=== PATIENT | female | born 1925 ===

== ENCOUNTER 2016-04-21 10:34 | Inpatient (IN) | payer OTHER ==
[2016-04-21 11:04] LABS: BASOPHILS % 0.7 (0.0-1.5); EOSINOPHILS % 3.8 % (0.0-6.8); LYMPHOCYTES # 0.9 # k/uL (0.6-4.0); MONOCYTES # 0.5 # k/uL (0.0-0.9); MONOCYTES % 7.2 % (0.0-11.0); NEUTROPHILS # 5.5 # k/uL (1.4-7.7)
--- NOTE | 2016-04-21 11:09 | ED Physician Documentation ---
General Adult - HISTORIAN Historian: patient, other (nursing staff) - HPI Stated Complaint: Shortness of Breath Chief Complaint: General Adult Onset: days ago (3) Timing: still present Severity: moderate Context: no precipitating factors Further Comments: yes - ROS CONST: recent illness (? viral). denies: fever CVS/RESP: shortness of breath. denies: chest pain, cough GI/: denies: abdominal pain, problems urinating, vomiting, nausea, diarrhea MS/SKIN/LYMPH: joint pain (at [place]). denies: calf pain - PAST HX Past History: none, other (CAD, dementia,HTN) Other History: diabetes Type 2, other (GERDs, OA) Allergies/Adverse Reactions: Allergies Allergy/AdvReac Type Severity Reaction Status Date / Time No Known Allergies Allergy Verified 04/21/16 10:59 Home Medications: Ambulatory Orders Medication Instructions Recorded Acetaminophen [Tylenol] 650 mg PO Q4 PRN 04/21/16 Ferrous Sulfate [Feosol] 325 mg PO BID 04/21/16 Magnesium Hydroxide [Milk of 2,400 mg PO BID PRN 04/21/16 Magnesia] - SOCIAL HX Smoking History: non-smoker Alcohol Use: none Drug Use: none - FAMILY HX Family History: Yes (diabetes) - VITAL SIGNS Vital Signs: Vital Signs Temp Pulse Resp BP Pulse Ox 98 F 78 18 105/50 84 L 04/21/16 10:35 04/21/16 10:35 04/21/16 10:35 04/21/16 10:35 04/21/16 10:35 - REVIEWED ASSESSMENTS Nursing Assessment Reviewed: Yes ED Results Lab/Radiology - Lab Results Lab Results: Lab Results 04/21/16 04/21/16 10:58 10:55 WBC 7.40 K/ul K/ul (4.00-12.00) RBC 3.05 M/ul L M/ul (3.90-5.20) Hgb 10.4 g/dL L g/dL (12.0-16.0) Hct 30.8 % L % (34.5-46.5) MCV 100.8 fl H fl (80.0-100.0) MCH 34.0 pg pg (28.0-34.0) MCHC 33.7 g/dL g/dL (30.0-36.0) RDW 12.6 % % (11.3-14.3) Plt Count 164 K/mm3 K/mm3 (130-400) Neut % (Auto) 74.2 % % (39.0-79.0) Lymph % (Auto) 12.4 % L % (16.0-50.0) [place] % (Auto) 7.2 % % (0.0-11.0) Eos % (Auto) 3.8 % % (0.0-6.8) Baso % (Auto) 0.7 (0.0-1.5) Neut # 5.5 # k/uL # k/uL (1.4-7.7) Lymph # 0.9 # k/uL # k/uL (0.6-4.0) [place] # 0.5 # k/uL # k/uL (0.0-0.9) Eos # 0.3 # k/uL # k/uL (0.0-0.6) Baso # 0.0 # k/uL # k/uL (0.0-0.5) Reactive Lymphs % 1.6 % % (0.0-5.0) Reactive Lymphs # 0.1 # k/uL # k/uL (0.0-0.8) Influenza Type A Ag Negative (NEGATIVE) Influenza Type B Ag Negative (NEGATIVE) - Orders Orders: ED Orders Category Date Time Status Place Saline Lock/IV Now Care 04/21/16 11:03 Active CHEST P.A.&LAT 2 VIEWS [RAD] Routine Exams 04/21/16 Ordered BNP [NT-proBNP] Routine Lab 04/21/16 Ordered CBC/PLATELET/DIFF Routine Lab 04/21/16 10:55 Completed CMP Routine Lab 04/21/16 10:55 Received INFLUENZA A&B Routine Lab 04/21/16 10:58 Completed 0.9 % Sodium Chloride [Normal Saline] 1,000 ml Med 04/21/16 11:30 Ordered IV .Q1H Oxygen Daily Oxygen 04/21/16 11:15 Ordered EKG WITH COMPARISON Routine Ther 04/21/16 Ordered General Adult Physical Exam - PHYSICAL EXAM GENERAL APPEARANCE: mild distress EENT: eye inspection normal, ENT inspection normal, pharynx normal, no signs of dehydration NECK: normal inspection, supple. No: lymphadenopathy, stiff neck RESPIRATORY: chest non-tender, rales (right), rhonchi (fe scattered) CVS: reg rate & rhythm, heart sounds normal, equal pulses, no JVD, no friction rub, other (grade 1/6 murmur) ABDOMEN: soft, no organomegaly, normal bowel sounds, no distension, non-tender. No: rebound, guarding BACK: normal inspection, no CVA tenderness SKIN: warm/dry, normal color. No: cyanosis EXTREMITIES: non-tender, normal range of motion, no evidence of injury NEURO: oriented X3, CN's nml as tested, motor nml, sensation nml, mood/affect nml. No: cognition normal (confused some) Discharge Clincal Impression: CHF (congestive heart failure) Qualifiers: Congestive heart failure type: diastolic Congestive heart failure chronicity: acute on chronic Qualified Code(s): I50.33 - Acute on chronic diastolic ( congestive) heart failure Home Medications: Ambulatory Orders Acetaminophen [Tylenol] 650 mg PO Q4 PRN 04/21/16 Ferrous Sulfate [Feosol] 325 mg PO BID 04/21/16 Magnesium Hydroxide [Milk of Magnesia] 2,400 mg PO BID PRN 04/21/16 Condition: Stable Disposition: 09 ADMITTED INPATIENT Decision to Admit: [id number] Date of Decison to Admit: 04/21/16 Decision Time: 12:06
[2016-04-21 11:15] LABS: eGFR (African) > 60; eGFR (Non-African) 41
[2016-04-21] MEDS ORDERED: 0.9 % SODIUM CHLORIDE 1,000 ML IV SCH (11:30)
[2016-04-21] MEDS ORDERED: FUROSEMIDE 40 MG/4 ML VIAL IVP ONE (11:46)
--- NOTE | 2016-04-21 13:12 | Diagnostic Imaging Report ---
[facility] [address] [facility].[address] [address] ~ ~ ~ ~ Report Submission Date: Apr 21, 2016 11:38:08 AM BROADCAST TRAFFIC COORDINATOR Patient ~ Study Name: JOSE MANUEL LYNN ~ Date: Apr 21, 2016 11:21:09 AM BROADCAST TRAFFIC COORDINATOR ~ Modality Type: CR Gender: F ~ Description: CHEST : [birth year] ~ Institution: [facility] Physician: DARREN FARLEY MD ~ ~ ~ ~ Chest -two views CLINICAL HISTORY: ~ Dyspnea since last night. FINDINGS: ~ Examination of the chest in PA and lateral views with no prior film for comparison demonstrates interstitial changes throughout the lungs consistent with congestion or interstitial infiltrate. ~The cardiac silhouette is enlarged and the aorta is atherosclerotic. ~There is a large retrocardiac hiatal hernia with air-fluid level. IMPRESSION: ~ Hyperinflation with interstitial infiltrate or congestion. ~ Cardiomegaly and aortic atherosclerosis. ~ Hiatal hernia. ~ Electronically signed on Apr 21, 2016 11:38:08 AM BROADCAST TRAFFIC COORDINATOR by: Scot HERNANDEZ
[2016-04-21] MEDS ORDERED: ACETAMINOPHEN 325 MG TABLET PO PRN (14:47)
--- NOTE | 2016-04-21 15:05 | History and Physical Report ---
History of Present Illnes - History of Present Illness Reason for Visit: dyspnea History of Present Illness: 89-year-old white female from [facility]. Patient has a 3 day history of increasing shortness of breath and dyspnea. Patient had to be placed on oxygen therapy earlier today. Patient was found to be low-grade fever. Patient was subsequently brought in for further evaluation and treatment. In the emergency room patient had a chest x-ray which showed some increasing interstitial congestion with possible interstitial infiltrate. Patient's SaO2 on room air ( into the low 80s. Patient had to be maintained on 3 L of oxygen in order to keep her SaO2 greater than 90. Patient was subsequently admitted to the hospital for further care and evaluation. 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 Musculoskeletal: Osteoarthritis Endocrine: Diabetes (diet controlled) - Past Surgical History Past Surgical History: None, Other (arthroscopic knee, cataract, D&C, heart cath) - Past Family History Mother Family History: Father Family History: - Past Social History Smoke: No Alcohol: None Drugs: None Lives: [place]Way Domestic Violence: Negative - Health Maintenance Health Maintenance: Influenza Vaccine, Pneumococcal Vaccine Influenza Vaccine: Current for this Influenza Season Pneumonia Vaccine: Yes Resuscitation Status: Resusciation Status Resuscitation Status Do Not Resuscitate - Unable to Obtain History Unable to Obtain: No Review of Systems - Review of Systems Constitutional: Fever, Weakness, Malaise. negative: Chills Eyes: negative: pain, vision change ENT: negative: Ear Pain, Ear Discharge, Nose Pain, Nose Congestion, Mouth Swelling, Throat Pain, Throat Swelling Respiratory: Cough, Shortness of Breath, SOB with Excertion, Sputum (clear), Wheezing. negative: Pleuritic Pain Cardiovascular: negative: Chest Pain, Palpitations Gastrointestinal: negative: Nausea, Vomiting, Abdominal Pain, Diarrhea, Constipation, Melena, Hematochezia Genitourinary: negative: Dysuria, Frequency, Incontinence, Hematuria Musculoskeletal: Back Pain. negative: Neck Pain Skin: negative: Rash, Lesions Neurological: Confusion. negative: Weakness, Numbness, Incoordination, Change in Speech, Seizures - Medications/Allergies Allergies/Adverse Reactions: Allergies Allergy/AdvReac Type Severity Reaction Status Date / Time No Known Allergies Allergy Verified 04/21/16 10:59 Home Medications: Home Medications Acetaminophen [Tylenol] 650 mg PO Q4 PRN 04/21/16 Ferrous Sulfate [Feosol] 325 mg PO BID 04/21/16 Magnesium Hydroxide [Milk of Magnesia] 2,400 mg PO BID PRN 04/21/16 Current Inpatient Medications: Current Inpatient Medications Enoxaparin Sodium (Lovenox) 30 mg SQ QD MIKE Stop: 05/04/16 15:01 Exam - Exam Vital Signs: Vital Signs (72 hours) 04/21/16 12:40 Pulse Rate [ 82 Pulse ox] Respiratory 18 Rate Blood Pressure 130/68 [Right Arm] O2 Sat by Pulse 95 Oximetry General: Alert, Oriented to Person, Oriented to Place, Cooperative, Mild distress. No: Oriented to Time HEENT: Atraumatic, Mouth Mucous membr. moist/Pace, Nose Mucous membr. moist/Pace , Edentulous, Decreased Hearing Acuity Neck: Normal Range of Motion. No: Lymphadenopathy Carotids: WNL Lungs: Clear to auscultation, Normal air movement, Speaks full Sentences, Respiratory Distress, Wheezes (mild) Cardiovascular: Regular rate Abdomen: Normal bowel sounds, Soft, No tenderness Integumentary: Normal, Pace, Warm, Dry. No: Pale Extremities: No clubbing, No cyanosis, No edema, Normal pulses Neurological: Normal gait, Normal speech, Strength Equal Bilat, Cranial nerves 3 -12 NL, Reflexes 2+ Psych/Mental Status: Mood NL. No: Mental status NL, Intact Judgment Assessment/Plan - Assessment/Plan (1) Anemia Status: Acute Current Visit: Yes (2) CAD (coronary artery disease) Status: Acute Current Visit: Yes (3) Hypertension Status: Acute Current Visit: Yes VTE Assessment - RISK FACTOR SCORE VTE RISK FACTOR SCORES: AGE OVER 60 YEARS, ANTICIPATED BED CONFINEMENT OR IMMOBILIZATION > 24 HOURS, CONGESTIVE HEART FAILURE OR MYOCARDIAL INFARCTION - RISK VTE HIGH RISK: SCORE OF 3-4 (RISK PROXIMAL DVT 4-8%) PROPHYLAXIS NEEDED
[2016-04-21] MEDS ORDERED: ENOXAPARIN SODIUM 30 MG/0.3 ML DISP.SYRIN SQ ONE (15:56)
[2016-04-21] MEDS: ENOXAPARIN SODIUM 30 MG/0.3 ML DISP.SYRIN SQ SCH (16:24)
[2016-04-21 18:15] VITALS: BMI 29.2
[2016-04-21] MEDS: SALINE FLUSH 10 ML DISP.SYRIN IV SCH (21:17)
[2016-04-21] MEDS ORDERED: MAGNESIUM HYDROXIDE 400 MG/5 ML 30ML UDC PO PRN (23:23)
[2016-04-22] MEDS ORDERED: FUROSEMIDE 20 MG/2 ML VIAL ONE (01:34)
[2016-04-22] MEDS ORDERED: IPRATROPIUM/ALBUTEROL SULFATE 3 ML AMPUL.NEB NEB ONE (01:34)
[2016-04-22] MEDS ORDERED: SALINE FLUSH 10 ML DISP.SYRIN IVF ONE ×3 (01:35→12:31)
[2016-04-22] MEDS ORDERED: FUROSEMIDE 20 MG/2 ML VIAL IVP ONE (01:46)
[2016-04-22] MEDS ORDERED: IPRATROPIUM/ALBUTEROL SULFATE 3 ML AMPUL.NEB NEB PRN (01:48)
[2016-04-22] MEDS ORDERED: ENOXAPARIN SODIUM 30 MG/0.3 ML DISP.SYRIN SQ ONE (04:59)
[2016-04-22] MEDS ORDERED: NAPROXEN 250 MG TABLET ONE (04:59)
[2016-04-22 07:01] LABS: eGFR (African) > 60; eGFR (Non-African) > 60
[2016-04-22] MEDS: SALINE FLUSH 10 ML DISP.SYRIN IV SCH ×2 (08:49→21:36)
[2016-04-22] MEDS: MEMANTINE HCL 10 MG TABLET PO SCH ×2 (08:49→21:37)
[2016-04-22] MEDS: ASPIRIN 81 MG CHEW TAB PO SCH (08:49)
[2016-04-22] MEDS: METOPROLOL TARTRATE 50 MG TABLET PO SCH (08:49)
[2016-04-22] MEDS: DILTIAZEM HCL 120 MG CAP.ER.24H PO SCH (08:49)
[2016-04-22] MEDS: ISOSORBIDE MONONITRATE 30 MG TAB.ER.24H PO SCH (08:50)
[2016-04-22] MEDS ORDERED: NAPROXEN 250 MG TABLET PO SCH (09:00)
[2016-04-22] MEDS: ENOXAPARIN SODIUM 30 MG/0.3 ML DISP.SYRIN SQ SCH (13:34)
[2016-04-22] MEDS: FERROUS SULFATE 325 MG TABLET PO SCH ×2 (13:34→18:42)
--- NOTE | 2016-04-22 17:09 | Diagnostic Imaging Report ---
[facility] [address] [facility].[address] [address] ~ ~ ~ ~ Report Submission Date: Apr 22, 2016 1:57:02 PM PERSONAL COMPUTER NETWORK ENGINEER Patient ~ Study Name: JOSE MANUEL LYNN ~ Date: Apr 22, 2016 1:47:58 PM PERSONAL COMPUTER NETWORK ENGINEER ~ Modality Type: CR Gender: F ~ Description: CHEST : [birth year] ~ Institution: [facility] Physician: DARREN FARLEY MD ~ ~ ~ ~ Chest -one view CLINICAL HISTORY: ~ Dyspnea. ~Right lateral chest pain. FINDINGS: ~ Examination of the chest in single portable AP view 04/22/2016 1347 hr with comparison to examination from the previous day demonstrates again cardiomegaly and aortic atherosclerosis. ~Interstitial changes appear slightly improved consistent with resolving congestion. ~There is mild blunting of the costophrenic angles consistent with small effusions. IMPRESSION: ~ Slight decrease in congestion. ~ Cardiomegaly and aortic atherosclerosis. ~ Small effusions. ~ Electronically signed on Apr 22, 2016 1:57:02 PM PERSONAL COMPUTER NETWORK ENGINEER by: Scot HERNANDEZ
--- NOTE | 2016-04-22 20:14 | Inpatient Progress Note ---
Subjective - Required Recertification Statement I anticipate X number of days because-include discharge plan: 1 day - Review of Systems Events since last encounter: Patient is still complaining of some SOB but is better. Has been having some intermittent right lateral chest pain. Gone at this time. Mild nonproductive cough. No fever or chills noted. General: Denies: Chills Pulmonary: Dyspnea, Cough, Pleuritic Chest Pain Cardiovascular: Chest Pain. Denies: Palpitations, Orthopnea, Paroxysmal Noc. Dyspnea, Edema Gastrointestinal: Denies: Nausea, Vomiting, Abdominal Pain, Diarrhea, Constipation, Melena Objective - Exam Vitals and I&O: Vital Signs Temp 97.7 F 04/22/16 14:00 Pulse 99 H 04/22/16 14:00 Resp 20 04/22/16 14:00 BP 139/59 04/22/16 14:00 Pulse Ox 92 04/22/16 14:00 Intake & Output 04/21/16 04/22/16 04/22/16 23:59 11:59 23:59 Intake Total 360 560 Balance 360 560 Weight 68.039 kg 63.503 kg Intake: Oral 360 560 Other: Voiding Method Toilet Toilet # Voids 2 General: Alert, Oriented to Person, Oriented to Place, Cooperative, No acute distress. No: Oriented to Time Lungs: Rales (in bases bliat R>L). No: Respiratory Distress, Wheezes, Rhonchi, Chest Wall Tenderness Cardiovascular: Regular rate, No murmurs Abdomen: Normal bowel sounds, Soft, No tenderness Psych/Mental Status: Mood NL, Appropriate Affect. No: Mental status NL ( confuses some), Intact Judgment - Results Results: Laboratory Results WBC 7.40 K/ul (4.00-12.00) 04/21/16 10:55 RBC 3.05 M/ul (3.90-5.20) L 04/21/16 10:55 Hgb 10.4 g/dL (12.0-16.0) L 04/21/16 10:55 Hct 30.8 % (34.5-46.5) L 04/21/16 10:55 MCV 100.8 fl (80.0-100.0) H 04/21/16 10:55 MCH 34.0 pg (28.0-34.0) 04/21/16 10:55 MCHC 33.7 g/dL (30.0-36.0) 04/21/16 10:55 RDW 12.6 % (11.3-14.3) 04/21/16 10:55 Plt Count 164 K/mm3 (130-400) 04/21/16 10:55 Neut % (Auto) 74.2 % (39.0-79.0) 04/21/16 10:55 Lymph % (Auto) 12.4 % (16.0-50.0) L 04/21/16 10:55 [place] % (Auto) 7.2 % (0.0-11.0) 04/21/16 10:55 Eos % (Auto) 3.8 % (0.0-6.8) 04/21/16 10:55 Baso % (Auto) 0.7 (0.0-1.5) 04/21/16 10:55 Neut # 5.5 # k/uL (1.4-7.7) 04/21/16 10:55 Lymph # 0.9 # k/uL (0.6-4.0) 04/21/16 10:55 [place] # 0.5 # k/uL (0.0-0.9) 04/21/16 10:55 Eos # 0.3 # k/uL (0.0-0.6) 04/21/16 10:55 Baso # 0.0 # k/uL (0.0-0.5) 04/21/16 10:55 Reactive Lymphs % 1.6 % (0.0-5.0) 04/21/16 10:55 Reactive Lymphs # 0.1 # k/uL (0.0-0.8) 04/21/16 10:55 Sodium 138 mmol/L (136-145) 04/22/16 06:30 Potassium 3.9 mmol/L (3.5-5.0) 04/22/16 06:30 Chloride 106 mmol/L (98-110) 04/22/16 06:30 Carbon Dioxide 26 mmol/L (20-32) 04/22/16 06:30 BUN 26 mg/dL (10-26) 04/22/16 06:30 Creatinine 1.1 mg/dL (0.4-1.5) 04/22/16 06:30 Estimated Creat Clear 41 04/22/16 06:30 Est GFR ( Amer) > 60 (60-) 04/22/16 06:30 Est GFR (Non-Af Amer) > 60 (60-) 04/22/16 06:30 Glucose 113 mg/dL (70-99) H 04/22/16 06:30 Calcium 9.4 mg/dL (8.5-10.5) 04/22/16 06:30 Total Bilirubin 0.3 mg/dL (0.2-1.2) 04/21/16 10:55 AST 19 U/L (0-41) 04/21/16 10:55 ALT 12 U/L (0-45) 04/21/16 10:55 Alkaline Phosphatase 84 U/L (46-116) 04/21/16 10:55 Troponin I 0.05 ng/mL (0.03-0.06) 04/21/16 11:05 NT-Pro-B Natriuret Pep 3684.2 pg/mL (15.0-450.0) H 04/21/16 11:05 Total Protein 6.8 g/dL (6.0-8.5) 04/21/16 10:55 Albumin 3.9 g/dL (3.0-5.5) 04/21/16 10:55 Influenza Type A Ag Negative (NEGATIVE) 04/21/16 10:58 Influenza Type B Ag Negative (NEGATIVE) 04/21/16 10:58 Assessment/Plan - Assessment/Plan (1) CHF (congestive heart failure) Status: Acute Current Visit: Yes Qualifiers: Congestive heart failure type: diastolic Congestive heart failure chronicity: acute on chronic Qualified Code(s): I50.33 - Acute on chronic diastolic (congestive) heart failure Assessment: Seems to be improved, pt has lost 4.5 kg. Lungs are sounding clearer. Will repeat chest x-ray (2) CAD (coronary artery disease) Status: Acute Current Visit: Yes Assessment: stable (3) Hypertension Status: Acute Current Visit: Yes Narrative Support Text: stable
[2016-04-23] MEDS ORDERED: NAPROXEN 250 MG TABLET ONE (04:36)
[2016-04-23] MEDS ORDERED: ASPIRIN EC 81 MG TABLET.DR ONE (04:36)
[2016-04-23 07:29] LABS: EOSINOPHILS % 6.7 % (0.0-6.8); LYMPHOCYTES # 0.9 # k/uL (0.6-4.0); MEAN CORPUSCULAR HEMOGLOBIN 32.3 pg (28.0-34.0); MONOCYTES # 0.4 # k/uL (0.0-0.9); NEUTROPHILS # 3.5 # k/uL (1.4-7.7)
[2016-04-23 07:38] LABS: eGFR (African) > 60; eGFR (Non-African) > 60
[2016-04-23] MEDS: DILTIAZEM HCL 120 MG CAP.ER.24H PO SCH (09:30)
[2016-04-23] MEDS: FERROUS SULFATE 325 MG TABLET PO SCH ×2 (09:30→18:31)
[2016-04-23] MEDS: NAPROXEN 250 MG TABLET PO SCH (09:31)
[2016-04-23] MEDS: MEMANTINE HCL 10 MG TABLET PO SCH ×2 (09:31→21:11)
[2016-04-23] MEDS: ISOSORBIDE MONONITRATE 30 MG TAB.ER.24H PO SCH (09:31)
[2016-04-23] MEDS: METOPROLOL TARTRATE 50 MG TABLET PO SCH (09:31)
[2016-04-23] MEDS ORDERED: ENOXAPARIN SODIUM 100 MG/ML DISP.SYRIN SQ ONE (09:33)
[2016-04-23] MEDS ORDERED: ENOXAPARIN SODIUM 60 MG/0.6 ML DISP.SYRIN SQ ONE (09:33)
[2016-04-23] MEDS: ASPIRIN 81 MG CHEW TAB PO SCH (09:36)
[2016-04-23] MEDS: SALINE FLUSH 10 ML DISP.SYRIN IVF SCH ×2 (09:36→21:11)
[2016-04-23] MEDS: ENOXAPARIN SODIUM 30 MG/0.3 ML DISP.SYRIN SQ SCH (09:37)
--- NOTE | 2016-04-23 13:04 | Inpatient Progress Note ---
Subjective - Required Recertification Statement I anticipate X number of days because-include discharge plan: 1 day - Review of Systems Events since last encounter: Patient continue to be weak. States that her breathing is doing OK. patient seemed to be more mentally awake and alert today. Pulmonary: Denies: Dyspnea, Cough Cardiovascular: Denies: Chest Pain, Other Gastrointestinal: Denies: Nausea, Vomiting, Abdominal Pain Objective - Exam Vitals and I&O: Vital Signs Temp 99.2 F 04/23/16 10:00 Pulse 93 H 04/23/16 10:00 Resp 20 04/23/16 10:00 BP 138/80 04/23/16 10:00 Pulse Ox 96 04/23/16 10:00 Intake & Output 04/22/16 04/23/16 04/23/16 23:59 11:59 23:59 Intake Total 560 120 180 Balance 560 120 180 Weight 139 kg Intake: Oral 560 120 180 Other: Voiding Method Toilet # Voids 1 General: Alert, Oriented to Person, Cooperative. No: Oriented to Place, Oriented to Time Lungs: Normal air movement, Speaks full Sentences, Rales (in bases) Cardiovascular: Regular rate, Normal S1, Normal S2, Murmur Extremities: No clubbing, No cyanosis, Other (edema) Skin: Normal Turgor. No: Normal, [place], Warm, Dry Neurological: Strength Equal Bilat - Results Results: Laboratory Results WBC 5.40 K/ul (4.00-12.00) 04/23/16 06:50 RBC 3.07 M/ul (3.90-5.20) L 04/23/16 06:50 Hgb 9.9 g/dL (12.0-16.0) L 04/23/16 06:50 Hct 30.9 % (34.5-46.5) L 04/23/16 06:50 MCV 100.5 fl (80.0-100.0) H 04/23/16 06:50 MCH 32.3 pg (28.0-34.0) 04/23/16 06:50 MCHC 32.2 g/dL (30.0-36.0) 04/23/16 06:50 RDW 12.4 % (11.3-14.3) 04/23/16 06:50 Plt Count 195 K/mm3 (130-400) 04/23/16 06:50 Neut % (Auto) 65.3 % (39.0-79.0) 04/23/16 06:50 Lymph % (Auto) 16.9 % (16.0-50.0) 04/23/16 06:50 [place] % (Auto) 8.0 % (0.0-11.0) 04/23/16 06:50 Eos % (Auto) 6.7 % (0.0-6.8) 04/23/16 06:50 Baso % (Auto) 1.0 (0.0-1.5) 04/23/16 06:50 Neut # 3.5 # k/uL (1.4-7.7) 04/23/16 06:50 Lymph # 0.9 # k/uL (0.6-4.0) 04/23/16 06:50 [place] # 0.4 # k/uL (0.0-0.9) 04/23/16 06:50 Eos # 0.4 # k/uL (0.0-0.6) 04/23/16 06:50 Baso # 0.0 # k/uL (0.0-0.5) 04/23/16 06:50 Reactive Lymphs % 2.2 % (0.0-5.0) 04/23/16 06:50 Reactive Lymphs # 0.1 # k/uL (0.0-0.8) 04/23/16 06:50 Sodium 137 mmol/L (136-145) 04/23/16 06:50 Potassium 4.2 mmol/L (3.5-5.0) 04/23/16 06:50 Chloride 105 mmol/L (98-110) 04/23/16 06:50 Carbon Dioxide 26 mmol/L (20-32) 04/23/16 06:50 BUN 18 mg/dL (10-26) 04/23/16 06:50 Creatinine 0.9 mg/dL (0.4-1.5) 04/23/16 06:50 Estimated Creat Clear 111 04/23/16 06:50 Est GFR ( Amer) > 60 (60-) 04/23/16 06:50 Est GFR (Non-Af Amer) > 60 (60-) 04/23/16 06:50 Glucose 104 mg/dL (70-99) H 04/23/16 06:50 Calcium 9.3 mg/dL (8.5-10.5) 04/23/16 06:50 Total Bilirubin 0.4 mg/dL (0.2-1.2) 04/23/16 06:50 AST 20 U/L (0-41) 04/23/16 06:50 ALT 12 U/L (0-45) 04/23/16 06:50 Alkaline Phosphatase 72 U/L (46-116) 04/23/16 06:50 Troponin I 0.05 ng/mL (0.03-0.06) 04/21/16 11:05 NT-Pro-B Natriuret Pep 3684.2 pg/mL (15.0-450.0) H 04/21/16 11:05 Total Protein 6.4 g/dL (6.0-8.5) 04/23/16 06:50 Albumin 3.7 g/dL (3.0-5.5) 04/23/16 06:50 Influenza Type A Ag Negative (NEGATIVE) 04/21/16 10:58 Influenza Type B Ag Negative (NEGATIVE) 04/21/16 10:58 Assessment/Plan - Assessment/Plan (1) CHF (congestive heart failure) Status: Acute Qualifiers: Congestive heart failure type: diastolic Congestive heart failure chronicity: acute on chronic Qualified Code(s): I50.33 - Acute on chronic diastolic (congestive) heart failure Assessment: improved (2) CAD (coronary artery disease) Status: Acute Assessment: stable (3) Hypertension Status: Acute Assessment: stable
--- NOTE | 2016-04-23 13:43 | Diagnostic Imaging Report ---
[facility] [address] [facility].[address] [address] Report Submission Date: Apr 23, 2016 7:13:52 AM STEEL INSPECTOR Patient Study Name: JOSE MANUEL LYNN Date: Apr 23, 2016 6:59:13 AM STEEL INSPECTOR Modality Type: CR Gender: F Description: CHEST : [birth year] Institution: [facility] Physician: DARREN FARLEY Chest - two views Clinical history: Dyspnea. Findings: Examination of the chest in PA and lateral views with comparison to examination from the previous day demonstrates a retrocardiac hiatal hernia without change. There are discoid changes in the lung bases that are new. The cardiac silhouette is enlarged and the aorta is atherosclerotic. Impression: 1. Bibasilar atelectasis. 2. Cardiomegaly and aortic atherosclerosis. Electronically signed on Apr 23, 2016 7:13:52 AM STEEL INSPECTOR by: Scot HERNANDEZ
[2016-04-23] MEDS ORDERED: FUROSEMIDE 20 MG/2 ML VIAL IVP SCH (14:00)
[2016-04-24 06:54] LABS: eGFR (African) > 60; eGFR (Non-African) > 60
[2016-04-24 10:01] VITALS: BP 99/52
[2016-04-24] MEDS: ASPIRIN 81 MG CHEW TAB PO SCH (10:18)
[2016-04-24] MEDS: DILTIAZEM HCL 120 MG CAP.ER.24H PO SCH (10:18)
[2016-04-24] MEDS: ENOXAPARIN SODIUM 30 MG/0.3 ML DISP.SYRIN SQ SCH (10:19)
[2016-04-24] MEDS: ISOSORBIDE MONONITRATE 30 MG TAB.ER.24H PO SCH (10:19)
[2016-04-24] MEDS: METOPROLOL TARTRATE 50 MG TABLET PO SCH (10:19)
[2016-04-24] MEDS: NAPROXEN 250 MG TABLET PO SCH (10:20)
[2016-04-24] MEDS: MEMANTINE HCL 10 MG TABLET PO SCH (10:20)
[2016-04-24] MEDS: SALINE FLUSH 10 ML DISP.SYRIN IVF SCH (10:20)
--- NOTE | 2016-05-06 21:20 | Discharge Summary ---
[facility] Present [facility]ness: 89-year-old white female from [facility]. Patient has a 3 day history of increasing shortness of breath and dyspnea. Patient had to be placed on oxygen therapy earlier today. Patient was found to be low-grade fever. Patient was subsequently brought in for further evaluation and treatment. In the emergency room patient had a chest x-ray which showed some increasing interstitial congestion with possible interstitial infiltrate. Patient's SaO2 on room air ( into the low 80s. Patient had to be maintained on 3 L of oxygen in order to keep her SaO2 greater than 90. Patient was subsequently admitted to the hospital for further care and evaluation. Condition at Discharge: Guarded Home Medications: Ambulatory Orders Medication Instructions Recorded Acetaminophen [Tylenol] 650 mg PO Q4 PRN 04/21/16 Ferrous Sulfate [Feosol] 325 mg PO BID 04/21/16 Magnesium Hydroxide [Milk of 2,400 mg PO BID PRN 04/21/16 Magnesia] Furosemide [Lasix] 20 mg PO DAILY #30 tablet 04/23/16 Consultations this Visit: None Procedures this Visit: None Allergies/Adverse Reactions: Allergies Allergy/AdvReac Type Severity Reaction Status Date / Time No Known Allergies Allergy Verified 04/21/16 10:59 Discharge Summary: patient was placed on oxygen support to maintain SaO2 greater than 90%. Patient was started on IV Lasix. Patient diuresed fairly well. Patient breathing status did improv Patient's BP in PE improved from 368 to 1304. time of discharge. Patient's mental status had improved but still not at baseline. Patient was eating and drinking fairly well. Patient was noted to be anemic with a hemoglobin of approximately 9.9. Dementia. To be stable without any behavioral issues. - Final Diagnosis (1) Anemia Problems: stable (2) CAD (coronary artery disease) Problems: stable (3) Hypertension Problems: stable on home meds
== END 2016-04-24 11:25 | DRG 812 ==
LOC: ED 10:34 → SOUTH 12:15
PROVIDERS: ADMIT Family Medicine; ATTEND Family Medicine
DX: D50.9 Iron deficiency anemia, unspecified (principal); I25.10 Atherosclerotic heart disease of native coronary artery without angina pectoris; I10 Essential (primary) hypertension
CPT/HCPCS: 36415; 71010; 71020; 80048; 80053; 83880; 84484; 85025; 87400; 93005; 99284; J1650; J1940; 99222; 99232; 99238; S1016

== ENCOUNTER 2017-05-02 19:23 | Emergency (ER) | payer OTHER ==
[2017-05-02] MEDS: DIPH,PERTUSS(ACELL),TET VAC/PF 0.5 ML DISP.SYRIN IM ONE (20:52)
--- NOTE | 2017-05-02 22:55 | Diagnostic Imaging Report ---
MAREN VIGIL [facility] [address] [facility] [address] [place] [address]. [address] Report Submission Date: May 02, 2017 8:43:37 PM GRAIN FARMER Patient Study Name: JOSE MANUEL LYNN Date: May 02, 2017 8:06:38 PM GRAIN FARMER Modality Type: CT\SR Gender: F Description: CT BRAIN W/O CONTRAST : [birth year] Institution: [facility] Physician: MAREN VIGIL Computed tomography of the head without contrast History: Fall with head injury Findings: Transverse brain sections are obtained without contrast revealing minimal right anterior frontal subarachnoid hemorrhage. Moderate brain atrophy and mild chronic small vessel ischemic gliosis in periventricular white matter are observed. Krishna white differentiation intact. The skull is intact. Impression: 1. Minimal right anterior frontal subarachnoid hemorrhage. 2. Senescent brain changes. Electronically signed on May 02, 2017 8:43:37 PM GRAIN FARMER by: Danial HERNANDEZ
--- NOTE | 2017-05-02 22:57 | Diagnostic Imaging Report ---
MAREN VIGIL [facility] [address] [facility].[address] [address] Report Submission Date: May 02, 2017 8:46:29 PM STADIUM MANAGER Patient Study Name: JOSE MANUEL LYNN Date: May 02, 2017 8:24:53 PM STADIUM MANAGER Modality Type: CR Gender: F Description: UPPER EXTREMITY : [birth year] Institution: [facility] Physician: MAREN VIGIL Left index finger 3 views History: Pain after injury Findings: Mild index finger interphalangeal osteoarthritis is present without fracture or dislocation. Electronically signed on May 02, 2017 8:46:29 PM STADIUM MANAGER by: Danial HERNANDEZ
--- NOTE | 2017-05-02 22:57 | Diagnostic Imaging Report ---
MAREN VIGIL [facility] [address] [facility] [address] [address] Report Submission Date: May 02, 2017 8:41:48 PM TEXTILE ARTIST Patient Study Name: JOSE MANUEL LYNN Date: May 02, 2017 8:09:04 PM TEXTILE ARTIST Modality Type: CT\SR Gender: F Description: CT C-SPINE W/O CONTRAS : [birth year] Institution: [facility] Physician: MAREN VIGIL Computed tomography of the cervical spine without contrast History: Neck pain after fall Findings: Transverse cervical spine sections are obtained without contrast revealing bilateral carotid atherosclerotic calcification, small left thyroid nodule, and clear lung apices. The thoracic kyphosis observed. The cervical spine is intact with minor bilateral facet arthropathy. Anterior C1/2 osteoarthritis is present. There is no fracture, subluxation, or paraspinal swelling. Impression: Intact cervical spine. Carotid atherosclerosis noted. Electronically signed on May 02, 2017 8:41:48 PM TEXTILE ARTIST by: Danial HERNANDEZ
--- NOTE | 2017-05-02 23:22 | ED Physician Documentation ---
Fall - HISTORIAN Historian: patient, other (shelter record) - HPI Stated Complaint: [place] from sitting position at [place], lac from glasses to Rt sikh Chief Complaint: Fall Additional Information: no loc but slower to respond at [place] Onset: just prior to arrival Where: other (shelter) Context: fell from sitting r: mild Associated Symptoms:: no loss of consciousness, dazed Location of Pain/Injury: head Injury to Right Extremity: none Injury to Left Extremity: other (left index finger) Further Comments: no - ROS CONST: no problems NEURO: denies: dizziness, anxiety, depression MS/SKIN/LYMPH: other (head pain) EYES/ENT: none CVS/RESP: none GI/: denies: problems urinating, nausea, vomiting - PAST HX Past History: cardiac disease, diabetes Type 2, COPD, other (anemia, angina, constipation, dementia, htn, gerd, chf, hyperlipidemia, oa) Immunizations: tetanus Allergies/Adverse Reactions: Allergies Allergy/AdvReac Type Severity Reaction Status Date / Time No Known Allergies Allergy Verified 04/21/16 10:59 Home Medications: Ambulatory Orders Medication Instructions Recorded Acetaminophen [Tylenol] 325 mg PO Q4 PRN 04/21/16 Ferrous Sulfate [Feosol] 325 mg PO BID 04/21/16 Magnesium Hydroxide [Milk of 2,400 mg PO BID PRN 04/21/16 Magnesia] Docusate Sodium [Dok] 100 mg PO DAILY 05/02/17 Ipratropium/Albuterol Sulfate 3 ml NEB Q4H PRN 05/02/17 [Duoneb] Mag Hydrox/Al Hydrox/Simeth 20 ml PO QID PRN 05/02/17 [Mylanta] Metoprolol Tartrate [Lopressor] 12.5 mg PO BID 05/02/17 - SOCIAL HX Smoking History: non-smoker Alcohol Use: none Drug Use: none - FAMILY HX Family History: no significant history - VITAL SIGNS Vital Signs: Vital Signs Temp Pulse Resp BP Pulse Ox 97.8 F 83 16 164/71 93 05/02/17 19:23 05/02/17 19:23 05/02/17 19:23 05/02/17 19:23 05/02/17 19:23 - REVIEWED ASSESSMENTS Nursing Assessment Reviewed: Yes Vitals Reviewed: Yes Procedures Wound Location: head Wound Length: 1.3 cm Wound's Depth, Shape: into muscle, linear Wound Explored: clean Betadine Prep?: No (surgiclens) Wound Repaired With: Dermabond Progress - Results/Orders Results/Orders: cbc, bmp, pt/ptt/inr, saline lock, 1 liter NS at 80 cc/hr, ct head, ct c-spine, ct maxillofacial bones ordered - Progress Progress: Pt' s blood pressure torsten in ER and was given 10 mg hydralazine ivp. Case discussed with Dr. Sherice Ingram at [facility] who accepts ER to ER transfer. Critical Care Note - Critical Care Note Total Time (mins): 60 ED Results Lab/Radiology - Lab Results Lab Results: wbc 6.4, hgb 13.5, hct 42.1, segs 71.1, lymphs 15.9, na 143, k 4.5, cl 105, co2 29, bun 33, creat 1.2, glu 101, pt 10.8, ptt 23.6, inr 1.03 - Radiology Radiology Impressions: ct head shows minimal subarachnoid hemorrhage right frontal area, neg for fx, ct maxillofacial area neg for fx, ct c-spine neg for fx - Orders Orders: ED Orders Category Date Time Status Place IV Lock 1T Care 05/02/17 22:57 Active Skin Adhesive NOW Care 05/02/17 20:[address] BRAIN W/O CONTRAST Stat Exams 05/02/[address] C-SPINE W/O CONTRAST Stat Exams 05/02/[address] MAXILLOFACIAL W/O DYE Routine Exams 05/02/17 Taken FINGER 2 VIEWS OR MORE [RAD] Stat Exams 05/02/17 Completed BMP Routine Lab 05/02/17 Ordered CBC/PLATELET/DIFF Routine Lab 05/02/17 22:57 Ordered PT-INR Routine Lab 05/02/17 Ordered PTT Routine Lab 05/02/17 Ordered 0.9 % Sodium Chloride [Normal Saline] 1,000 ml Med 05/02/17 23:00 Ordered IV Q12H Diph,Pertuss(Acell),Tet Vac/Pf [Adacel] Med 05/02/17 19:47 Discontinued 0.5 ml IM .ONCE ONE hydrALAZINE HCL [Apresoline] Med 05/02/17 22:59 Discontinued 10 mg IVP NOW ONE Fall Physical Exam - Physical Exam General Appearance: alert (Pt. is demented but able to answer questions appropriately.) Head: trauma (periorbital ecchymosis rightg eye) Neck: non-tender, painless ROM, trachea midline Eye: JAS, EOMI ENT: nml external inspection, no dental injury, no oral injury, airway nml Resp/CVS: chest non-tender, no ecchymosis, breath sounds nml, no resp. 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 No: motor deficit Skin: color nml, no rash Back: normal inspection, no CVA tenderness, no vertebral tenderness Extremities: other (tenderness left 2nd finger) Joint: joints nml - [place] Coma Score Eyes Open: Spontaneous Speech: Oriented (to person) Motor: Obeys Commands Discharge Clincal Impression: Head trauma Qualifiers: Encounter type: initial encounter Qualified Code(s): S09.90XA - Unspecified injury of head, initial encounter Subarachnoid hemorrhage following injury Qualifiers: Encounter type: initial encounter Loss of consciousness presence/duration: without LOC Qualified Code(s): S06.6X0A - Traumatic subarachnoid hemorrhage without loss of consciousness, initial encounter Referrals: Narciso Sanchez MD [Primary Care Provider] - 2 Days Comments: Repeat bp after hydralzine 140/53 Condition: Stable Disposition: XFER [id number] HOSP Decision to Admit: NO Decision Time: 23:00
--- NOTE | 2017-05-02 23:32 | Diagnostic Imaging Report ---
MAREN VIGIL [facility] [address] [facility] [address] [place] [address]. 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 Fall. Findings: Transverse mandible and facial bones sections are obtained without contrast. The mandible and facial bones are intact. A right supraorbital scalp hematoma and laceration are observed. There is no evidence of orbital hemorrhage or globe rupture. Minimal right frontal subarachnoid hemorrhage and moderate brain atrophy are noted. Impression: 1. Right supra-orbital scalp hematoma and laceration without fracture. 2. Right inter frontal subarachnoid hemorrhage. 3. Brain atrophy. Electronically signed on May 02, 2017 8:45:19 PM CRYOLITE RECOVERY OPERATOR by: Danial HERNANDEZ
[2017-05-02] MEDS ORDERED: 0.9 % SODIUM CHLORIDE 1,000 ML IV ONE (23:46)
[2017-05-02 23:47] LABS: BASOPHILS % 0.9 (0.0-1.5); EOSINOPHILS % 3.5 % (0.0-6.8); MEAN CORPUSCULAR HEMOGLOBIN 31.8 pg (28.0-34.0); MEAN CORPUSCULAR VOLUME 98.9 fl (80.0-100.0); MONOCYTES % 6.3 % (0.0-11.0); NEUTROPHILS # 4.5 # k/uL (1.4-7.7)
[2017-05-02] MEDS: hydrALAZINE HCL 20 MG/1 ML IVP ONE (23:53)
[2017-05-02] MEDS: 0.9 % SODIUM CHLORIDE 1,000 ML IV SCH (23:53)
[2017-05-02 23:57] LABS: eGFR (African) > 60; eGFR (Non-African) > 60
[2017-05-03 01:29] VITALS: BP 120/54
== END 2017-05-03 01:23 | disposition short-term general hospital (02) ==
LOC: ED 19:23
DX: S09.90XA Unspecified injury of head, initial encounter (principal); S06.6X0A Traumatic subarachnoid hemorrhage without loss of consciousness, initial encounter; X58.XXXA Exposure to other specified factors, initial encounter; Y92.129 Unspecified place in nursing home as the place of occurrence of the external cause; Y93.9 Activity, unspecified; Z23 Encounter for immunization
CPT/HCPCS: 70450; 70486; 72125; 73140; 80048; 85025; 85610; 85730; 90715; J0360; J7030; 12001; 90471; 96365; 96375; 99284; S1016